=== PATIENT | male | born 1995 | race Caucasian/White ===

== ENCOUNTER 2020-10-15 23:11 | Emergency (ER) | payer SELFPAY ==
[~2020-10-15] VITALS: Ht 190.5 cm; Wt 77.1 kg
[2020-10-15 23:44] VITALS: BP 142/79
== END 2020-10-16 03:44 | disposition home or self-care (01) ==
LOC: ER 23:11
DX: R07.89 Other chest pain (principal)
CPT/HCPCS: 71045; 93005